=== PATIENT | female | born 1970 | race Caucasian/White ===

== ENCOUNTER 2022-05-28 16:27 | Outpatient (CLI) | payer OTHER, SELFPAY ==
[2022-05-28 17:14] LABS: Albumin* 4.4 g/dL (3.3-5.0); Chloride* 103 mmol/L (96-114); Sodium* 137 mmol/L (135-149)
[2022-05-28 17:15] LABS: Potassium* 3.9 mmol/L (3.6-5.1)
[2022-05-28 17:16] LABS: Cholesterol* 273 mg/dL (90-199)
[2022-05-28 17:17] LABS: Alanine Aminotransferase* 16 U/L (4-35); Alkaline Phosphatase* 66 U/L (40-150); Aspartate Amino Transferase* 21 U/L (12-35); Bilirubin Total* 0.9 mg/dL (0.1-1.5); Blood Urea Nitrogen* 11 mg/dL (7-30); Carbon Dioxide* 24 mmol/L (20-32); Creatinine* 0.9 mg/dL (0.5-1.5); Estimated Glomerular Filt Rate 77 ml/min; Glucose* 79 mg/dL (60-115); Total Protein* 7.1 g/dL (6.0-8.3); Triglycerides* 136 mg/dL (40-149)
[2022-05-28 17:18] LABS: Calcium* 8.8 mg/dL (8.4-10.6); HDL Cholesterol* 53 mg/dL (>=50); LDL Cholesterol Calculated 193 mg/dL (<100)
[2022-05-28 17:35] LABS: Vitamin D 25 Hydroxy* 21 ng/mL (30-80)
[2022-05-28 18:06] LABS: Hepatitis C Virus Antibody* Negative (Negative)
== END 2022-05-28 16:28 | disposition home or self-care (01) ==
PROVIDERS: PCP Family Medicine; Visit Provider Family Medicine
DX: Z00.00 Encounter for general adult medical examination without abnormal findings (principal); N92.4 Excessive bleeding in the premenopausal period; Z13.6 Encounter for screening for cardiovascular disorders; Z11.59 Encounter for screening for other viral diseases
CPT/HCPCS: 80053; 80061; 82306; 86803

== ENCOUNTER 2022-09-08 14:23 | Outpatient (CLI) | payer OTHER, SELFPAY ==
--- NOTE | 2022-09-08 14:40 | CRLHL7_ITS ---
For Patients: As a result of the Century Cures Act, medical imaging exams and procedure reports are released immediately into your electronic medical record. You may view this report before your referring provider. If you have questions, please contact your health care provider. BILATERAL SCREENING MAMMOGRAM WITH COMPUTER-AIDED DETECTION AND TOMOSYNTHESIS TECHNIQUE: CC and MLO views were obtained. These mammographic images have been obtained using full-field digital technique. These mammographic images were interpreted with the benefit of computer-aided detection. Breast Tomosynthesis was used in this interpretation. COMPARISON FILM: 08/17/21, 07/04/18, 11/19/16. FINDINGS: There are scattered areas of fibroglandular density IMPRESSION: There is no radiographic evidence for malignancy. ASSESSMENT: BI-RADS Category 1: Negative RECOMMENDATION: Routine screening mammogram in 1 year. A lay language report of this examination will be provided to the patient. Epifanio Mendoza M.D. Diagnostic Radiologist [email or web address] MITUL/Dictated by: Epifanio Mendoza MD @ 09/09/2022 12:52:00 PM (Electronically Signed)
== END 2022-09-08 14:24 | disposition home or self-care (01) ==
LOC: MAMMO 14:24
PROVIDERS: PCP Family Medicine; Visit Provider Family Medicine
DX: Z12.31 Encounter for screening mammogram for malignant neoplasm of breast (principal)
CPT/HCPCS: 77063; 77067

== ENCOUNTER 2023-07-26 07:15 | Outpatient (CLI) | payer OTHER, SELFPAY | END 2023-07-26 07:16 | disposition home or self-care (01) | PROVIDERS: PCP Family Medicine; Visit Provider Family Medicine | DX: Z13.220 Encounter for screening for lipoid disorders (principal); Z13.228 Encounter for screening for other metabolic disorders | CPT/HCPCS: 80053; 80061 ==

== ENCOUNTER 2023-12-23 08:00 | Outpatient (RCR) | payer OTHER, SELFPAY | END 2023-12-23 08:53 | disposition home or self-care (01) | PROVIDERS: PCP Family Medicine; Visit Provider Orthopaedic Surgery Sports Medicine | DX: S82.402A Unspecified fracture of shaft of left fibula, initial encounter for closed fracture (principal); Z51.89 Encounter for other specified aftercare | CPT/HCPCS: 97110; 97140; 97161 ==

== ENCOUNTER 2024-08-31 13:10 | Outpatient (CLI) | payer OTHER, SELFPAY ==
[2024-09-12 22:56] LABS: HPV Source Cervix; HPV, High Risk by TMA Not Detected
== END 2024-08-31 13:11 | disposition home or self-care (01) ==
PROVIDERS: PCP Family Medicine; Visit Provider Family Medicine
DX: R53.83 Other fatigue (principal); N88.8 Other specified noninflammatory disorders of cervix uteri; R68.82 Decreased libido; L85.3 Xerosis cutis; Z12.4 Encounter for screening for malignant neoplasm of cervix; Z13.6 Encounter for screening for cardiovascular disorders; Z11.51 Encounter for screening for human papillomavirus (HPV); Z90.5 Acquired absence of kidney
CPT/HCPCS: 80053; 80061; 82043; 82306; 82570; 84443; 85027; 87624; 87625; 88141; 88142

== ENCOUNTER 2024-11-15 15:04 | Outpatient (CLI) | payer OTHER, SELFPAY ==
--- NOTE | 2024-11-15 15:20 | CRLHL7_ITS ---
For Patients: As a result of the Century Cures Act, medical imaging exams and procedure reports are released immediately into your electronic medical record. You may view this report before your referring provider. If you have questions, please contact your health care provider. INDICATION: BILATERAL SCREENING MAMMOGRAM, ASYMPTOMATIC 54 Y/O FEMALE COMPARISON: 09/08/22, 06/17/22, 07/04/18 TECHNIQUE: CC and MLO views were obtained. These mammographic images have been obtained using full-field digital technique. These mammographic images were interpreted with the benefit of computer aided detection and tomosynthesis. BREAST COMPOSITION: There are scattered areas of fibroglandular density. FINDINGS: No suspicious findings. ASSESSMENT: BI-RADS 1 Negative RECOMMENDATION: Annual screening mammogram. A lay language report of this examination will be provided to the patient. Dictated by: Epifanio Mendoza MD @ 11/22/2024 13:29:22 (Electronically Signed)
== END 2024-11-15 15:05 | disposition home or self-care (01) ==
LOC: MAMMO 15:04
PROVIDERS: PCP Family Medicine; Visit Provider Family Medicine
DX: Z12.31 Encounter for screening mammogram for malignant neoplasm of breast (principal)
CPT/HCPCS: 77063; 77067